=== PATIENT | male | born 1975 | race Caucasian/White ===

== ENCOUNTER 2025-06-27 12:09 | Emergency (ER) | payer OTHER, BC, SELFPAY ==
[2025-06-27 12:10] VITALS: BP 169/88; PULSE 88; RESP 16; TEMP 36.5; O2SAT 100; BMI 27.3
--- NOTE | 2025-06-27 12:19 | EKG12_ITS ---
Test Reason : SYNCOPE Blood Pressure : */* mmHG Vent. Rate : 78 BPM Atrial Rate : 78 BPM P-R Int : 152 ms QRS Dur : 102 ms QT Int : 352 ms P-R-T Axes : 43 -7 14 degrees QTcB Int : 401 ms Normal sinus rhythm Normal ECG Confirmed by MARGE PORTER, ANGELO ([id number]), editor map ESTRELLITA MORTENSEN ([id number]) on 06/30/2025 9:16:58 AM Referred By: Confirmed By: ANGELO BIRD MD
[2025-06-27 12:28] LABS: Hematocrit 43.5 % (40-54); Hemoglobin 14.8 g/dL (13.0-16.5); Immature Granulocytes Count 0.020 X10^3/uL (0.0-0.0); Mean Corp Hgb Conc 34.0 g/dL (32-36); Mean Corpuscular Volume 88.8 fL (80-94); Mean Platelet Vol. 10.0 fl (6.2-12.0); NRBC Flagged by Analyzer 0 % (0-5); Platelet Count 170 K/mm3 (150-450); RBC Distribution Width CV 13.8 % (11.6-14.6); RBC Distribution Width SD 45.0 fl (35.1-43.9); Red Blood Count 4.90 M/mm3 (4.6-6.2); White Blood Count 5.8 K/mm3 (4.4-11.0)
[2025-06-27 13:17] LABS: AST(SGOT) 34 U/L (<=37); Alanine Aminotransfer ALT/SGPT 30 U/L (<=46); Albumin, Serum 4.6 g/dL (3.5-5.0); Alkaline Phosphatase 49 U/L (40-129); Anion Gap 12 (5-15); BUN 20 mg/dL (4-19); BUN/Creat Ratio 19.5 RATIO (10-20); Calcium,Total 9.6 mg/dL (7.6-11.0); Carbon Dioxide 25.4 mmol/L (21.0-32.0); Chloride 99 mmol/L (98-108); Estimated Creatinine Clearance 87.40 ml/min (50-250); Globulin 2.4 g/dL (2.2-4.2); Glucose 98 mg/dL (70-99); Potassium 4.2 mmol/L (3.3-5.1)
--- NOTE | 2025-06-27 13:20 | CT_ITS ---
PROCEDURE: BRAIN/HEAD WITHOUT CONTRAST 06/27/2025 REASON FOR EXAM: HEAD INJURY TECHNIQUE: BRAIN/HEAD WITHOUT CONTRAST Coronal and Sagittal reconstruction series were provided. One or more dose reduction techniques were used (e.g., Automated exposure control, adjustment of the mA and/or kV according to patient size, use of iterative reconstruction technique. RADIATION DOSE SUMMARY: CTDlvol: 44.99 mGy DLP: 829.85 mGycm COMPARISON: None FINDINGS: Brain: Normal CSF Spaces: Normal Sinuses/Mastoids: Clear at visualized levels Bones: Unremarkable CT/Brain/Head without Contrast IMPRESSION: NORMAL NONCONTRAST HEAD CT. Reading Location: [place] [id number]
--- NOTE | 2025-06-27 13:22 | EX.ED.DYSGE1 ---
HPI History of Present Illness Chief Complaint: Syncope Informant: patient Onset/Context/Timing Onset: Today Context: Sudden Onset Timing: Intermittent Current Severity: Gone Maximum Severity: Moderate Narrative Narrative: 50-year-old male no past medical history. 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 Said he felt nauseated and then he had a syncopal episode. He felt the forklift hit the left side of his head and injured his left shoulder. He is left-hand dominant. He denies any prior surgeries. He was feeling fine prior to this episode. Denies any recent illness. They are unsure if he may have had a seizure at the scene. He has never had a seizure before nor a syncopal episode. Prior similar symptoms: No Recent Illness/Hospitalization: No [facility] Medical History (Updated 06/27/25 @ 15:[address] Ryan Fraser MD) Kidney stones Medical History no medical history no medical history Surgical History no surgical history no surgical history Social History Smoking Status: Never smoker ROS ROS ED ROS Narrative Denies recent illness. Constitutional Constitutional ED: Denies chills or fever(s) ENT ENT ED: Denies ear pain Cardiovascular Cardiovascular: Denies chest pain Respiratory/Chest Respiratory/Chest: Denies cough or dyspnea Gastrointestinal Gastrointestinal: Reports diarrhea and other Details: Mild loose stools after recent trip. ; Denies abdominal pain Genitourinary Genitourinary ED: Denies dysuria or hematuria Musculoskeletal Musculoskeletal: Denies arthralgias Integumentary Denies abscess Neurologic Neurologic: Reports headache(s) Psychiatric Psychiatric: Denies anxiety Endocrine Endocrinology: Denies cold intolerance Hematologic/Lymphatic Hematologic/Lymphatic: Reports none Allergic/Immunologic Allergic/Immunologic ED: Denies mouth swelling, tongue swelling or urticaria EXAM Physical Exam Narrative Exam Narrative: 50-year-old male sitting upright in bed. Coworker seated beside him. Vital signs are stable afebrile. Pulse ox 100% on room air is not hypoxic. H EENT exam pupils round react light. Motions are intact. There is no bruising or swelling but he has tenderness to the left lateral scalp. There is no laceration or hematoma. Posterior scalp nontender. Face is nontender. Dentition intact. C-spine and neck nontender. Back spine is nontender he is tenderness on the soft tissue by his left posterior shoulder. Clavicles are intact and nontender. He has pain with range of motion left shoulder but can lift it and AB and 80 ducted. Lungs clear equal and symmetrical. Heart regular rhythm rate about 90 no murmur. Chest wall and ribs are nontender. Abdomen soft nontender. Normal bowel sounds without peritoneal signs. Fully nontender. Pelvic girdle intact. Moving all 4 extremities. Again tenderness left posterior shoulder but no gross bony deformities. Normal machine printer hose strength. Normal dorsi plantarflexion. Neurologically is awake alert. He is answering questions following commands. Const Vital Signs: 06/27/25 12:10 06/27/25 13:28 06/27/25 13:39 Temperature 97.7 F L Temperature Source Oral Pulse Rate 88 83 Respiratory Rate 16 18 Blood Pressure 169/88 H 141/75 H Blood Pressure Mean 115 97 Pulse Ox 100 100 Oxygen Delivery Method Room Air Room Air Room Air 06/27/25 14:00 06/27/25 15:47 Temperature Temperature Source Pulse Rate 79 86 Respiratory Rate 16 18 Blood Pressure 143/85 H 136/84 H Blood Pressure Mean 104 101 Pulse Ox 100 Oxygen Delivery Method Room Air Positive well nourished and well developed; Negative for obese, cachectic, contractures or unkempt General Appearance ED: well developed and NAD; Negative for unkempt, cachectic, contractures, cyanotic, diaphoretic or pallor Nutritional Appearance: Negative for cachectic or obese HEENT Reports moist mucous membranes Negative for trauma or tenderness Eyes PERRL and EOMs intact bilaterally General Eye ED: Negative for pale conjunctiva or scleral icterus Neck no lymphadenopathy, supple and no JVD Chest Wall inspection of chest normal and palpation of chest normal Resp normal respiratory effort and clear to auscultation bilaterally Effort and Inspection: Negative for retractions Auscultation: Negative for rales, rhonchi or wheezes Cardio regular rate, regular rhythm, S1 normal heart sound, S2 normal heart sound and no murmurs Rate: Negative for bradycardia or tachycardic Rhythm: Negative for abnormal rhythm GI normal to inspection, nondistended, normoactive bowel sounds, non-tender, non-distended and no masses Auscultation: normoactive bowel sounds Palpation: soft; Negative for tender, guarding or rebound tenderness present Back/Spine no CVA tenderness General Back: Negative for CVA tenderness Cervical Spine: Negative for cervical spine tenderness Thoracic Spine / Upper Back: Negative for thoracic spinal tenderness or paraspinal muscle tenderness Lumbar Spine / Lower Back: Negative for lumbar spinal tenderness Extremity normal to inspection Extremity Narrative: Tenderness behind left shoulder. No deformity. General Extremety ED: Negative for edema or tenderness General Extremity: Negative for edema Neuro oriented x3 and CN's II-XII intact bilaterally Sensorium / Orientation: alert; Negative for orientation impaired, lethargic or stuporous Motor Exam: strength 5/5 throughout Psych mental status grossly normal Appearance: Negative for unkempt Mood & Affect: Negative for depressed, anxious or tearful Skin no rashes or lesions noted, no wounds and skin turgor normal General Skin Exam: elasticity normal; Negative for jaundice or pallor Lesions: No lesion noted Rashes: No rashes noted Trauma: Negative for abrasion Wounds: Negative for wounds noted MDM MDM MDM Narrative Medical decision making narrative: 50-year-old male no significant past medical history. At work today had either a syncopal episode or a seizure or possibly both. He fell off a forklift hit his head. He is complaining of a headache and left scalp pain. Also pain to his posterior left shoulder. CAT scan of brain to be obtained. X-ray of the shoulder. He will undergo workup for syncope that may or may not have been cardiac in nature. This repeat exam patient is doing well at 3:15 PM. Went over his test results. I would prefer to admit him for syncope and seizure for further evaluation workup. He believes this may be from dehydration which it could be but it happened at 4 AM and he went home and hydrated now his labs do not necessarily reflect what happened 11 hours ago. I had a lengthy discussion with the patient due to the syncopal episode, head injury, seizure. I preferred to meet in the hospital for further evaluation and workup in case is a syncopal episode versus just an acute seizure. When she has a history of neither. He understands the risk and benefits. He absolutely is adamant that he does not want to be admitted to the hospital and is signing out AGAINST MEDICAL ADVICE. He understands he has been instructed not to drive or swim. Follow-up with his primary care physician no I have them on page from [place]. Follow-up with orthopedics for his shoulder. History & Record Review Discussion w/independent historian: Patient Additional record(s) reviewed:: No prior records Lab Data Attestation: I reviewed the patient's lab results. Lab results narrative: CBC shows a white count of 5. H&H 14 and 43. Platelets 170. Glucose 98. Liver enzymes unremarkable other than a total bilirubin of 2.2. Initial troponin less than 6. CT brain no acute abnormality. Chest x-ray no acute abnormality. Left shoulder x-ray nondisplaced acromion fracture. Labs: Laboratory Results - last 24 hr 06/27/25 06/27/25 06/27/25 12:18 13:36 14:53 WBC 5.8 RBC 4.90 Hgb 14.8 Hct 43.5 MCV 88.8 MCH 30.2 MCHC 34.0 RDW Std Deviation 45.0 H RDW Coeff of Wei 13.8 Plt Count 170 MPV 10.0 Immature Gran % (Auto) 0.300 Neut % (Auto) 70.8 H Lymph % (Auto) 14.8 L [place] % (Auto) 12.2 H Eos % (Auto) 1.7 Baso % (Auto) 0.2 Absolute Neuts (auto) 4.1 Absolute Lymphs (auto) 0.85 Nucleated RBC % 0 Sodium 136 Potassium 4.2 Chloride 99 Carbon Dioxide 25.4 Anion Gap 12 BUN 20 H Creatinine 1.00 Estim Creat Clear Calc 87.40 Est GFR (MDRD) Non-Af 93 BUN/Creatinine Ratio 19.5 Glucose 98 Calcium 9.6 Total Bilirubin 2.27 H AST 34 ALT 30 Alkaline Phosphatase 49 Troponin T High Sens < 6 Troponin T Hi Sens 2 Hr < 6 Total Protein 7.0 Albumin 4.6 Globulin 2.4 Albumin/Globulin Ratio 1.9 POC Glucose 97 Radiography Chest X-Ray - ED: 2 View, Read by ED Physician, Normal, Heart, Mediastinum, Bony Structures, No Acute Disease and Chronic Changes Diagnostic Testing: Clinical Impression(s) from Imaging Studies Brain CT 06/27/25 13:20 IMPRESSION: NORMAL NONCONTRAST HEAD CT. Reading Location: [facility] [place]-[facility]-1 Chest X-Ray 06/27/25 14:00 IMPRESSION: Hyperinflation. The lungs are clear. Reading Location: [facility] [place]1 Shoulder X-Ray 06/27/25 14:00 IMPRESSION: NO ACUTE FRACTURE OR DISLOCATION. Reading Location: [facility], [place]--1 CT brain showed no acute abnormality. Chest x-ray, 2 views, AP and lateral, interpreted by myself and radiology shows normal cardiac silhouette. Normal lung davis. No acute abnormalities. Left shoulder x-ray shows a lucency of the lateral acromion consistent with a nondisplaced acromion fracture. Rhythm Strip Rhythm Strip: Sinus Rhythm Rate: 78 Ectopy: None EKG Initial EKG: Attestation: I personally reviewed and interpreted this EKG as follows: Interpretation: Sinus Rhythm and No Acute Injury Pattern Comments: Normal sinus rhythm rate of 78 no acute signs of DC or ischemia. No dysrhythmia. Discharge Plan Triage Chief Complaint: Syncope ED Provider: Ryan Fraser Dx/Rx/DC Orders Clinical Impression: Syncope, Fall, Head injury, Seizure, Fracture of left shoulder, Encounter related to worker's compensation claim Instructions: ED Head Injury (Adult), ED Fracture, Shoulder, ED Fainting, Uncertain Cause, ED Seizure New [facility] Adult Primary Care Provider: LEYDA DURAN Referrals: LEYDA DURAN [Other] - As soon as possible (Call follow-up with your doctor soon as possible need further evaluation for the possible syncopal event where you passed out. Need further evaluation due to having the seizure.) Matheus Muñiz MD [Med Staff - Active Staff] - As soon as possible (For your left acromial or shoulder fracture.) Activity Restrictions/Additional Instructions: Ice to your shoulder. Motrin and Tylenol for pain Keep your shoulder in the sling except when you are bathing or sleeping if you want to take it that you can. Call and follow-up with an orthopedic doctor for further evaluation of your left shoulder. You do have the break or fracture of the acromion. Follow-up with your primary care doctor about passing out and hitting your head and having the seizure. No driving due to the head injury and your seizure. No swimming. Light duty at work. Print Language: Sinhala Disposition Disposition: Home, Self Care
[2025-06-27 13:39] VITALS: BP 141/75; PULSE 83; RESP 18; O2SAT 100
[2025-06-27 14:00] VITALS: BP 143/85; PULSE 79; RESP 16
--- NOTE | 2025-06-27 14:00 | RAD_ITS ---
PROCEDURE: SHOULDER MIN 2 VIEWS 06/27/2025 REASON FOR EXAM: INJURY TECHNIQUE: SHOULDER MIN 2 VIEWS Laterality: Left shoulder COMPARISON: None FINDINGS: Bones: No fracture seen. Joints: Normal alignment. Joint spaces preserved. No arthropathic features. Soft tissues: Soft tissues are unremarkable. Other: RAD/Shoulder min 2 Views IMPRESSION: NO ACUTE FRACTURE OR DISLOCATION. Reading Location: [facility]
--- NOTE | 2025-06-27 14:00 | RAD_ITS ---
PROCEDURE: CHEST PA AND LATERAL 06/27/2025 REASON FOR EXAM: SYNCOPE TECHNIQUE: CHEST PA AND LATERAL COMPARISON: None FINDINGS: Hardware: EKG electrodes are seen. Heart: The heart size is normal. Mediastinum: The mediastinal contour is unremarkable. Lungs: Hyperinflation. Prominence of the central pulmonary arteries. Pulmonary hypertension should be ruled out. No focal infiltrate is seen. Bones: Degenerative changes are identified within the thoracic spine. RAD/Chest PA and Lateral IMPRESSION: Hyperinflation. The lungs are clear. Reading Location: [place] [id number]
[2025-06-27 14:06] LABS: Troponin T High Sensitivity < 6 ng/L (<=22)
[2025-06-27 15:25] LABS: Troponin T High Sens 2 HR < 6 ng/L (<=22)
[2025-06-27 15:47] VITALS: BP 136/84; PULSE 86; RESP 18; O2SAT 100
[2025-06-27 16:31] VITALS: BP 158/79; PULSE 78; RESP 18; TEMP 37; O2SAT 98
== END 2025-06-27 16:38 | disposition home or self-care (01) ==
PROVIDERS: Emergency Provider Emergency Medicine; Visit Provider Emergency Medicine
DX: S42.125A Nondisplaced fracture of acromial process, left shoulder, initial encounter for closed fracture (principal); R56.9 Unspecified convulsions; S09.90XA Unspecified injury of head, initial encounter; R55 Syncope and collapse; W17.89XA Other fall from one level to another, initial encounter; Y99.0 Civilian activity done for income or pay; Y92.89 Other specified places as the place of occurrence of the external cause
CPT/HCPCS: 70450; 71046; 73030; 80053; 82962; 84484; 85025; 93005; 96374; 96375; 99285; A4216; J2405